=== PATIENT | male | born 1965 | race Caucasian/White ===

== ENCOUNTER 2020-10-11 14:23 | Emergency (ER) | payer OTHER ==
[~2020-10-11 14:23] MED LIST: ASPIR 8181 MG PO; HUMULIN R100 UNIT/1 INJ; LISINOPRIL20 MG PO; NORVASC 5 MG TAB5 MG PO; NOVOLIN 70100 UNIT/1 SQ; PROVENTIL HFA6.7 GM INH; TENORMIN 25 MG25 MG PO
[2020-10-11 15:16] LABS: HEMOGLOBIN 14.6 gm/dl (14.0-17.5); RED BLOOD COUNT 4.26 M/UL (4.20-5.50); WHITE BLOOD COUNT 9.2 K/UL (4.5-11.0)
[2020-10-11 15:58] LABS: BUN/CREATININE RATIO 19 (0-10)
== END 2020-10-11 21:25 | disposition home or self-care (01) ==
LOC: ER1 14:23
PROVIDERS: Preventive Medicine Occupational Medicine
DX: E11.65 Type 2 diabetes mellitus with hyperglycemia (principal); F10.920 Alcohol use, unspecified with intoxication, uncomplicated; Z20.822 Contact with and (suspected) exposure to COVID-19
CPT/HCPCS: 0240U; 36600; 70450; 71045; 80053; 80307; 81001; 82009; 82140; 82550; 82553; 82803; 82962; 83605; 83690; 83874; 83880; 84484; 85025; 85652; 86140; 87077; 87086; 87186; 93005; 96374; 96375; 96376; 99285; G0480; J2405

== ENCOUNTER 2020-11-16 11:01 | Inpatient (IN) | payer OTHER ==
[~2020-11-16] VITALS: Ht 167.6 cm; Wt 69.5 kg
[2020-11-16 11:40] LABS: HEMOGLOBIN 12.3 gm/dl (14.0-17.5); RED BLOOD COUNT 3.57 M/UL (4.20-5.50)
[2020-11-16 12:10] LABS: BUN/CREATININE RATIO 11 (0-10)
[2020-11-17 08:02] LABS: ACINETOBACTER BAUMANNII Not Detected (Negative); CANDIDA ALBICANS Not Detected (Negative); CANDIDA KRUSEI Not Detected (Negative); CANDIDA TROPICALIS Not Detected (Negative); ENTEROCOCCUS Not Detected (Negative); ESCHERICHIA COLI Not Detected (Negative); HAEMOPHILUS INFLUENZAE Not Detected (Negative); KLEBSIELLA OXYTOCA Not Detected (Negative); KLEBSIELLA PNEUMONIAE Not Detected (Negative); KPC-CARBAPENEM-RESISTANCE GENE Not Detected (Negative); PROTEUS Not Detected (Negative); PSEUDOMONAS AERUGINOSA Not Detected (Negative); SERRATIA MARCESANS Not Detected (Negative); STAPHYLOCOCCUS AUREUS Not Detected (Negative); STREP AGALACTIAE (GROUP B) Not Detected (Negative); STREP PYOGENES (GROUP A) Not Detected (Negative); STREPTOCOCCUS Not Detected (Negative); mecA (METHICILLIN RESIST GENE Not Detected (Negative); vanA/B (VANCOMYCIN RESIST GENE Not Detected (Negative)
[2020-11-17 08:06] LABS: HEMOGLOBIN 10.5 gm/dl (14.0-17.5)
[2020-11-17 08:09] LABS: RED BLOOD COUNT 3.18 M/UL (4.20-5.50); WHITE BLOOD COUNT 17.3 K/UL (4.5-11.0)
[2020-11-17] MEDS ORDERED: NOVOLIN R100 UNIT/1 INJ (09:38)
[2020-11-17] MEDS ORDERED: ALBUTEROL2.5 MG/3 M NEB (09:39)
[2020-11-17] MEDS ORDERED: LISINOPRIL20 MG PO (09:40)
[2020-11-17 09:42] LABS: STAPHYLOCOCCUS DETECTED (Negative)
[2020-11-17] MEDS ORDERED: SIMVASTATIN20 MG PO (09:42)
[2020-11-17 13:26] LABS: WHITE BLOOD COUNT 36.1 K/UL (4.5-11.0)
[2020-11-18 05:37] LABS: HEMOGLOBIN 11.1 gm/dl (14.0-17.5); RED BLOOD COUNT 3.32 M/UL (4.20-5.50); WHITE BLOOD COUNT 21.1 K/UL (4.5-11.0)
[2020-11-19 04:58] LABS: HEMOGLOBIN 10.4 gm/dl (14.0-17.5); RED BLOOD COUNT 3.12 M/UL (4.20-5.50); WHITE BLOOD COUNT 17.6 K/UL (4.5-11.0)
[2020-11-20 04:49] LABS: RED BLOOD COUNT 2.99 M/UL (4.20-5.50)
[2020-11-20 04:50] LABS: WHITE BLOOD COUNT 8.1 K/UL (4.5-11.0)
[2020-11-21 05:46] LABS: HEMOGLOBIN 10.3 gm/dl (14.0-17.5); RED BLOOD COUNT 3.08 M/UL (4.20-5.50)
[2020-11-21 06:03] LABS: WHITE BLOOD COUNT 5.9 K/UL (4.5-11.0)
[2020-11-21 10:10] LABS: HEMOGLOBIN 10.6 gm/dl (14.0-17.5); RED BLOOD COUNT 3.17 M/UL (4.20-5.50)
[2020-11-21 10:21] LABS: WHITE BLOOD COUNT 4.1 K/UL (4.5-11.0)
[2020-11-22 05:47] LABS: HEMOGLOBIN 10.2 gm/dl (14.0-17.5); RED BLOOD COUNT 3.08 M/UL (4.20-5.50); WHITE BLOOD COUNT 5.5 K/UL (4.5-11.0)
[2020-11-22 15:14] LABS: HEMATOCRIT 30.3 % (37.5-51.0)
[2020-11-23 05:25] LABS: HEMOGLOBIN 9.6 gm/dl (14.0-17.5); RED BLOOD COUNT 2.88 M/UL (4.20-5.50)
[2020-11-23 10:14] LABS: HBSAG SCREEN Negative (Negative); HEP A AB, IGM Negative (Negative); HEP B CORE AB, IGM Negative (Negative); HEP C VIRUS AB <0.1 (0.0-0.9)
[2020-11-23 15:14] LABS: HEPARIN INDUCED PLATELET AB 0.061 OD (0.000-0.400)
[2020-11-24 08:12] LABS: HEMOGLOBIN 9.5 gm/dl (14.0-17.5); RED BLOOD COUNT 2.85 M/UL (4.20-5.50); WHITE BLOOD COUNT 7.5 K/UL (4.5-11.0)
[2020-11-25 05:21] LABS: HEMOGLOBIN 9.1 gm/dl (14.0-17.5); RED BLOOD COUNT 2.78 M/UL (4.20-5.50); WHITE BLOOD COUNT 7.2 K/UL (4.5-11.0)
[2020-11-25 23:11] LABS: ADAMTS13 ACTIVITY 55.7 % (>66.8)
[2020-11-26 04:34] LABS: HEMOGLOBIN 8.9 gm/dl (14.0-17.5); RED BLOOD COUNT 2.74 M/UL (4.20-5.50)
[2020-11-26 04:40] LABS: WHITE BLOOD COUNT 9.1 K/UL (4.5-11.0)
[2020-11-27 06:58] LABS: HEMOGLOBIN 8.9 gm/dl (14.0-17.5); RED BLOOD COUNT 2.75 M/UL (4.20-5.50); WHITE BLOOD COUNT 10.1 K/UL (4.5-11.0)
[2020-11-27 11:13] LABS: BODY FLUID SOURCE PLEURAL
[2020-11-27 11:14] LABS: MONONUCLEAR CELLS 91.2 (75-100); POLYMORPHONUCLEAR % 8.8 (0-25); RBC (AUTOMATED) 200 (0-100000); WBC (AUTOMATED) 113 (0-500)
[2020-11-27 11:32] LABS: LDH, BODY FLUID 156 U/L; TOTAL PROTEIN, BODY FLUID 1.5 gm/dL
[2020-11-28 05:12] LABS: RED BLOOD COUNT 2.42 M/UL (4.20-5.50); WHITE BLOOD COUNT 18.5 K/UL (4.5-11.0)
[2020-11-29 07:55] LABS: ACINETOBACTER BAUMANNII Not Detected (Negative); CANDIDA ALBICANS Not Detected (Negative); CANDIDA KRUSEI Not Detected (Negative); CANDIDA TROPICALIS Not Detected (Negative); ENTEROCOCCUS Not Detected (Negative); ESCHERICHIA COLI Not Detected (Negative); HAEMOPHILUS INFLUENZAE Not Detected (Negative); KLEBSIELLA OXYTOCA Not Detected (Negative); KLEBSIELLA PNEUMONIAE Not Detected (Negative); KPC-CARBAPENEM-RESISTANCE GENE Not Detected (Negative); PROTEUS Not Detected (Negative); PSEUDOMONAS AERUGINOSA Not Detected (Negative); SERRATIA MARCESANS Not Detected (Negative); STAPHYLOCOCCUS AUREUS Not Detected (Negative); STREP AGALACTIAE (GROUP B) Not Detected (Negative); STREP PYOGENES (GROUP A) Not Detected (Negative); STREPTOCOCCUS Not Detected (Negative); mecA (METHICILLIN RESIST GENE Not Detected (Negative); vanA/B (VANCOMYCIN RESIST GENE Not Detected (Negative)
[2020-11-29 08:20] LABS: HEMOGLOBIN 8.2 gm/dl (14.0-17.5); RED BLOOD COUNT 2.48 M/UL (4.20-5.50); WHITE BLOOD COUNT 14.3 K/UL (4.5-11.0)
[2020-11-29 10:14] LABS: STAPHYLOCOCCUS DETECTED (Negative)
[2020-11-30 04:55] LABS: HEMOGLOBIN 8.1 gm/dl (14.0-17.5); RED BLOOD COUNT 2.5 M/UL (4.20-5.50); WHITE BLOOD COUNT 13.9 K/UL (4.5-11.0)
[2020-12-01 05:25] LABS: HEMOGLOBIN 7.5 gm/dl (14.0-17.5); RED BLOOD COUNT 2.4 M/UL (4.20-5.50); WHITE BLOOD COUNT 12.2 K/UL (4.5-11.0)
[2020-12-01 11:02] LABS: ADENOVIRUS F 40/41 Not Detected (Negative); ASTROVIRUS Not Detected (Negative); CAMPYLOBACTER Not Detected (Negative); CRYPTOSPORIDIUM Not Detected (Negative); E.COLI 0157 Not Detected (Negative); ENTAMOEBA HISTOLYTICA Not Detected (Negative); ENTEROAGGREGATIVE E.COLI (EAEC Not Detected (Negative); ENTEROPATHOGENIC E.COLI (EPEC) Not Detected (Negative); ENTEROTOXIGENIC E.COLI (ETEC) Not Detected (Negative); GIARDIA LAMBLIA Not Detected (Negative); NOROVIRUS GI/GII Not Detected (Negative); PLESIOMONAS SHIGELLOIDES Not Detected (Negative); ROTOVIRUS A Not Detected (Negative); SALMONELLA Not Detected (Negative); SAPOVIRUS Not Detected (Negative); SHIG/ENTEROINVAS.ECOLI (EIEC) Not Detected (Negative); SHIGA-LIK TOX.PRO.E.COLI (STEC Not Detected (Negative); VIBRIO Not Detected (Negative); VIBRIO CHOLERAE Not Detected (Negative); YERSINIA ENTEROCOLITICA Not Detected (Negative)
[2020-12-01 14:19] LABS: CLOSTRIDIUM DIFFICILE TOX A/B DETECTED (Negative)
[2020-12-02 04:05] LABS: HEMOGLOBIN 7.3 gm/dl (14.0-17.5); RED BLOOD COUNT 2.35 M/UL (4.20-5.50); WHITE BLOOD COUNT 13.2 K/UL (4.5-11.0)
[2020-12-03 04:03] LABS: RED BLOOD COUNT 2.26 M/UL (4.20-5.50); WHITE BLOOD COUNT 12.1 K/UL (4.5-11.0)
[2020-12-04 03:30] LABS: HEMOGLOBIN 8.5 gm/dl (14.0-17.5); WHITE BLOOD COUNT 12.6 K/UL (4.5-11.0)
[2020-12-04 03:36] LABS: RED BLOOD COUNT 2.83 M/UL (4.20-5.50)
[2020-12-05 05:53] LABS: HEMOGLOBIN 9.3 gm/dl (14.0-17.5); RED BLOOD COUNT 3.01 M/UL (4.20-5.50); WHITE BLOOD COUNT 13.1 K/UL (4.5-11.0)
[2020-12-06 08:58] LABS: HEMOGLOBIN 9.6 gm/dl (14.0-17.5); RED BLOOD COUNT 3.13 M/UL (4.20-5.50); WHITE BLOOD COUNT 13.6 K/UL (4.5-11.0)
[2020-12-07 03:22] LABS: HEMOGLOBIN 9.1 gm/dl (14.0-17.5); RED BLOOD COUNT 3.04 M/UL (4.20-5.50); WHITE BLOOD COUNT 11.1 K/UL (4.5-11.0)
[2020-12-08 10:16] LABS: HEMOGLOBIN 9.9 gm/dl (14.0-17.5); RED BLOOD COUNT 3.22 M/UL (4.20-5.50); WHITE BLOOD COUNT 9.8 K/UL (4.5-11.0)
[2020-12-09 02:47] LABS: RED BLOOD COUNT 2.94 M/UL (4.20-5.50); WHITE BLOOD COUNT 8.8 K/UL (4.5-11.0)
[2020-12-10 02:43] LABS: HEMOGLOBIN 9.3 gm/dl (14.0-17.5); RED BLOOD COUNT 3.09 M/UL (4.20-5.50); WHITE BLOOD COUNT 9.2 K/UL (4.5-11.0)
[2020-12-11 10:07] LABS: HEMOGLOBIN 10.2 gm/dl (14.0-17.5); RED BLOOD COUNT 3.36 M/UL (4.20-5.50); WHITE BLOOD COUNT 10.7 K/UL (4.5-11.0)
--- NOTE | 2020-12-11 23:06 | NUR ---
TRANSFERRED TO ROOM 5123 WITH ALL BELONGINGS
--- NOTE | 2020-12-12 02:43 | NUR ---
PATIENT RECIEVED FROM U AT 2300, AAO X 3. VSS
[2020-12-12 08:25] LABS: HEMOGLOBIN 9.6 gm/dl (14.0-17.5); RED BLOOD COUNT 3.22 M/UL (4.20-5.50); WHITE BLOOD COUNT 12.8 K/UL (4.5-11.0)
[2020-12-13 08:10] LABS: HEMOGLOBIN 9.3 gm/dl (14.0-17.5); RED BLOOD COUNT 3.06 M/UL (4.20-5.50); WHITE BLOOD COUNT 11.9 K/UL (4.5-11.0)
[2020-12-14 09:02] LABS: RED BLOOD COUNT 2.92 M/UL (4.20-5.50); WHITE BLOOD COUNT 9.8 K/UL (4.5-11.0)
[2020-12-15 07:04] LABS: HEMOGLOBIN 9.2 gm/dl (14.0-17.5); RED BLOOD COUNT 3.07 M/UL (4.20-5.50); WHITE BLOOD COUNT 11.6 K/UL (4.5-11.0)
[2020-12-18 08:02] LABS: HEMOGLOBIN 8.4 gm/dl (14.0-17.5); RED BLOOD COUNT 2.82 M/UL (4.20-5.50); WHITE BLOOD COUNT 10.3 K/UL (4.5-11.0)
[2020-12-18] MEDS ORDERED: FERROUS SULFAT325 M2 PO (14:46)
[2020-12-18] MEDS ORDERED: THERAGRAN M TAB1 EA PO (14:46)
[2020-12-18] MEDS ORDERED: LANTUS INS100 UTS/M1 SC (14:46)
[2020-12-18] MEDS ORDERED: CARVEDILOL25 MG PO (14:46)
[2020-12-18] MEDS ORDERED: HUMALOG 10100 UNITS/ SC (14:46)
[2020-12-18] MEDS ORDERED: GABAPENTIN100 MG PO (14:46)
[2020-12-18] MEDS ORDERED: FUROSEMIDE40 MG PO (14:46)
[2020-12-18] MEDS ORDERED: ACETAMINOPHEN325 MG PO (14:46)
[2020-12-18] MEDS ORDERED: DILTIAZEM 24HR240 M1 PO (14:46)
== END 2020-12-18 20:22 | DRG 870 ==
LOC: ER1 11:01 → M/S 21:24 → CDU 21:24 → PROG CARE 21:24 → CCU 21:24 → PROG CARE 12-01 12:50 → M/S 12-11 22:53
PROVIDERS: Internal Medicine; Internal Medicine Infectious Disease; Internal Medicine Nephrology; Internal Medicine Pulmonary Disease; Physician Assistant; Physician Assistant Medical; Registered Nurse; ADMIT Internal Medicine
DX: A41.9 Sepsis, unspecified organism (principal); E10.10 Type 1 diabetes mellitus with ketoacidosis without coma; N17.0 Acute kidney failure with tubular necrosis; N18.6 End stage renal disease; R65.21 Severe sepsis with septic shock; J80 Acute respiratory distress syndrome; G92 Toxic encephalopathy; J69.0 Pneumonitis due to inhalation of food and vomit; I50.33 Acute on chronic diastolic (congestive) heart failure; J18.9 Pneumonia, unspecified organism; D61.818 Other pancytopenia; E87.2 Acidosis; I13.2 Hypertensive heart and chronic kidney disease with heart failure and with stage 5 chronic kidney disease, or end stage renal disease; A04.72 Enterocolitis due to Clostridium difficile, not specified as recurrent; F10.139 Alcohol abuse with withdrawal, unspecified; Z20.822 Contact with and (suspected) exposure to COVID-19; E87.5 Hyperkalemia; E10.42 Type 1 diabetes mellitus with diabetic polyneuropathy; E83.39 Other disorders of phosphorus metabolism; E83.51 Hypocalcemia; E10.22 Type 1 diabetes mellitus with diabetic chronic kidney disease; E88.09 Other disorders of plasma-protein metabolism, not elsewhere classified; D69.6 Thrombocytopenia, unspecified; I08.1 Rheumatic disorders of both mitral and tricuspid valves; R53.81 Other malaise; E87.70 Fluid overload, unspecified; I48.0 Paroxysmal atrial fibrillation; Z79.01 Long term (current) use of anticoagulants; Z99.2 Dependence on renal dialysis; Z83.3 Family history of diabetes mellitus; Z91.013 Allergy to seafood; Z79.82 Long term (current) use of aspirin; Z79.899 Other long term (current) drug therapy; Z91.14 Patient's other noncompliance with medication regimen; Z79.4 Long term (current) use of insulin
CPT/HCPCS: ECHO; 31500; 36415; 36430; 36600; 51702; 71045; 71046; 74018; 80048; 80053; 80074; 80202; 80307; 81001; 82009; 82140; 82272; 82550; 82553; 82570; 82607; 82728; 82747; 82800; 82803; 82962; 83010; 83540; 83550; 83605; 83615; 83690; 83735; 83874; 83880; 83921; 84100; 84132; 84133; 84156; 84157; 84300; 84484; 85007; 85018; 85025; 85027; 85045; 85049; 85384; 85397; 85610; 85730; 86140; 86850; 86900; 86901; 86920; 87040; 87070; 87077; 87086; 87150; 87186; 87205; 87324; 87449; 87507; 89051; 90935; 90937; 92610; 93005; 93306; 94002; 94003; 94640; 94660; 94664; 94760; 96374; 96375; 97110; 97110-GP-CQ; 97116; 97116-GP-CQ; 97162; 97166; 97530; 97530-GP-CQ; 99285; C1751; C9113; G0480; J0330; J0360; J0610; J0692; J0696; J1205; J1335; J1644; J1650; J1940; J2020; J2060; J2250; J2270; J2405; J2543; J2704; J2765; J2997; J3010; J3370; J3475; J7030; J7040; J7050; J7070; P9016; P9047; Q0177; U0002